=== PATIENT | female | born 1970 | race Two or more races ===

== ENCOUNTER 2017-04-22 13:32 | Outpatient (CLI) | payer OTHER ==
[~2017-04-22 13:32] MED LIST: AMOX1TAB12 PO; FLOVENT 110MCG7.9 GM IH; PREMARIN1.25 MG PO; PRISTIQ; PROVENTIL3 ML/2.5 M IH; TYLENOL-CODEINE1 TAB PO; ZYNCOF 20-400120 ML PO
== END 2017-04-22 13:42 | disposition home or self-care (01) ==
LOC: MAMO-SONO 13:32
DX: Z12.31 Encounter for screening mammogram for malignant neoplasm of breast (principal); N60.11 Diffuse cystic mastopathy of right breast; N60.12 Diffuse cystic mastopathy of left breast

== ENCOUNTER 2018-05-05 13:34 | Outpatient (CLI) | payer OTHER | END 2018-05-05 13:58 | disposition home or self-care (01) | LOC: MAMO-SONO 13:34 | DX: Z78.0 Asymptomatic menopausal state (principal); R92.2 Inconclusive mammogram; Z80.3 Family history of malignant neoplasm of breast; Z12.31 Encounter for screening mammogram for malignant neoplasm of breast ==

== ENCOUNTER → 2021-02-26 | Outpatient (CLI) | payer OTHER | END | disposition home or self-care (01) | LOC: PPH VACUNA 08:00 | PROVIDERS: ATTEND Emergency Medicine Pediatric Emergency Medicine | DX: Z23 Encounter for immunization (principal) ==